=== PATIENT | female | born 1990 | race Caucasian/White ===

== ENCOUNTER → 2017-12-21 | Outpatient (CLI) | payer OTHER | END | disposition home or self-care (01) | LOC: C.PAPS 12:05 | PROVIDERS: ATTEND Family Medicine | DX: Z12.72 Encounter for screening for malignant neoplasm of vagina (principal) ==

== ENCOUNTER → 2017-12-21 | Outpatient (CLI) | payer OTHER | END | disposition home or self-care (01) | LOC: C.LABSPEC 11:20 | PROVIDERS: ATTEND Family Medicine | DX: Z11.3 Encounter for screening for infections with a predominantly sexual mode of transmission (principal); Z11.8 Encounter for screening for other infectious and parasitic diseases ==

== ENCOUNTER 2019-09-28 06:46 | Inpatient (IN) ==
[2019-09-28] MEDS ORDERED: OXYTOCIN 30 UNITS/500 ML BAG IV PRN ×3 (08:37→19:21)
[2019-09-28] MEDS ORDERED: BUTORPHANOL TARTRATE 1 MG/ML VIAL IV PRN (08:41)
--- NOTE | 2019-09-28 08:41 | History & Physical Report ---
Date of Service September 28, 2019 Assessment & Plan (1) Normal labor: admit, expectant management. wants iv pain meds now, but can have epidural on request. Fetus reassuring. Anticipate . History of Present Illness Primary Care Provider: Crystalalberto Soliman Patient is a 29yowf with iup at 38 2/7 weeks who presents to labor and delivery complaining of contractions since 3am. no lof, vb. +fm. O+ labs--O+/ab-/ri/rprnr/hep b-/hiv-/gc/ct-/gbs neg/ gtt x 2 neg panorama--uninformative DNA sample, may be associated with a chromosomal abnl and counseling recommended to consider further testing, she declined. Allergies Allergy/AdvReac Type Severity Reaction Status Date / Time No Known Drug Allergies Allergy none Verified 09/28/19 07:07 Home Medications Home Medications Medication Instructions Recorded Confirmed Type pedi multivitamin no.79-iron 1 tab PO DAILY 09/28/19 09/28/19 History [Flintstones with Iron] Patient History Medical History History of varicella Surgical History H/O wisdom tooth extraction No history of previous surgery Family History Grandmother (Maternal) Diabetes Mother Hypertension Premature labor Brother Hypertension Grandfather (Maternal) Hypertension Social History Preferred Language: Czech Communication Ability: Effective 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 Beliefs That Will Affect Care: None marital status: Current Living Situation: Spouse Other Information That Helps Us Care for You: No Feels Safe at Home: Yes Safety Concerns: Feels Safe At This Time Smoking Status: Never smoker Hx Alcohol Use: No Hx Substance Use: No 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
[2019-09-28] MEDS: LACTATED RINGER'S 1,000 ML IV PRN ×2 (08:45→12:36)
[2019-09-28 08:56] LABS: Hematocrit (blood only) 39.9 % (37-47); Hemoglobin 14.1 g/dL (12.0-16.0); Mean Corpuscular Hemoglobin 31.2 pg (25-34); Mean Corpuscular Volume 88.3 fL (80-100); Mean Platelet Volume 10.2 fL (7.4-10.4); Platelet Count 282 K/uL (130-400); RDW Standard Deviation 45.4 fL (36.4-46.3); Red Blood Count 4.52 M/uL (4.2-5.4); White Blood Count 14.32 K/uL (4.8-10.8)
[2019-09-28 09:10] LABS: Mean Corpuscular Hgb Conc 35.3 g/dL (32-36)
[2019-09-28] MEDS ORDERED: ePHEDrine sulfate 50 MG/ML AMP ONE (12:08)
[2019-09-28] MEDS ORDERED: fentaNYL citrate 100 MCG/2 ML VIAL ONE (12:08)
[2019-09-28] MEDS ORDERED: fentaNYL 2MCG/ML ROPIV 1.25MG/ML 100 ML BAG EPI ONE (12:09)
[2019-09-28] MEDS ORDERED: BUPIVACAINE 0.25% 30 ML VIAL ONE (12:09)
[2019-09-28] MEDS ORDERED: NALOXONE HCL 1 MG in SODIUM CHLORIDE 0.9% 1000ML 1,000 ML IV PRN (12:16)
[2019-09-28] MEDS ORDERED: ONDANSETRON INJ 2 MG/ML 2 ML VIAL IV PRN (12:16)
[2019-09-28] MEDS ORDERED: DiphenhydrAMINE HCL 50 MG/ML VIAL IV PRN (12:16)
[2019-09-28] MEDS ORDERED: NALOXONE HCL 0.4 MG/1 ML VIAL/CARP IV PRN (12:16)
[2019-09-28] MEDS ORDERED: fentaNYL 2MCG/ML ROPIV 1.25MG/ML 100 ML BAG EPI PRN (12:16)
[2019-09-28] MEDS ORDERED: ePHEDrine sulfate 50 MG/ML AMP IV PRN (12:16)
[2019-09-28] MEDS ORDERED: NALBUPHINE HCL INJ 10 MG/ML AMP IV PRN (12:16)
--- NOTE | 2019-09-28 12:22 | Anesthesiology Consultation ---
Date of Service September 28, 2019 Assessment & Plan Chart Review Chart Review: Patient NOT seen in Pre Admission Testing and Acceptable Risk for Labor Epidural Consults Requested none ASA ASA2 Proposed Anesthesia Anesthesia Type: Labor Epidural and CSE Risk / Benefits Reviewed With: PT / POA / Parent / Guardian, Accepts Plan and Informed Consent Obtained History Height/Weight Height: 5 ft 5 in Weight: 62.142 kg Allergies Allergy/AdvReac Type Severity Reaction Status Date / Time No Known Drug Allergies Allergy none Verified 09/28/19 07:07 Medications Home Medications Medication Instructions Recorded Confirmed Last Taken pedi multivitamin no.79-iron 1 tab PO DAILY 09/28/19 09/28/19 09/27/19 18:00 [Flintstones with Iron] Active Medications Generic Name Dose Route Start Last Admin Trade Name Freq PRN Reason Stop Dose Admin Lactated Ringer's 1,000 mls @ 125 mls/hr 09/28/19 08:37 09/28/19 12:05 Lr IV 09/30/19 08:36 999 mls/hr .Q8H PRN Infusion L&D Protocol Protocol NPO Date Last Intake of Fluids: 09/28/19 Time Last Intake of Fluids: 11:30 Date Last Intake of Solids: 09/28/19 Time Last Intake of Solids: 06:00 Past Medical History Medical History History of varicella Exercise / Class Metabolic Activity II 4-5 Yardwork/Stairs/Walk up hill Past Family History Family History Grandmother (Maternal) Diabetes Mother Hypertension Premature labor Brother Hypertension Grandfather (Maternal) Hypertension Past Surgical History Surgical History H/O wisdom tooth extraction No history of previous surgery Past Anesthesia History No Hx of Anesthesia Complications and No Family Hx of Anesthesia Complications History of PONV No Hx of PONV and No Hx of Motion Sickness Social History Smoking Status: Never smoker Hx Alcohol Use: No Hx Substance Use: No Review of Systems no chest pain or sob Physical Exam Vital Signs Last Vital Signs Temp 36.5 C 09/28/19 12:12 Pulse 91 H 09/28/19 12:17 Resp 20 09/28/19 12:12 BP 130/76 09/28/19 12:12 Pulse Ox 100 09/28/19 12:17 ENMT Mouth: no TMJ abnormality Thyromental Distance: > or= 3.5 Finger Breadths Mallampati Class: II Neck normal visual inspection Respiratory normal respiratory effort Auscultation: lungs clear to auscultation bilaterally Cardiovascular Rate/Rhythm: regular rate and regular rhythm Musculoskeletal Spine: normal cervical ROM Neurologic moves all extremities Psychiatric Orientation: alert and oriented x 3 Testing Laboratory Results 09/28/19 08:45
--- NOTE | 2019-09-28 17:22 | Labor Progress Brief Note ---
Date of Service September 28, 2019 Subjective feeling rectal pressure Assessment & Plan (1) Normal labor: start second stage. fetus category one. anticipate . Physical Exam Constitutional: WD/WN, vitals as above Psychiatric: A+Ox3, euthymic affect Genitourinary: c/c/+1 toco--q2-4min efm--145 with mod variabiliy, small accels, no decels Results & Data Vital Signs (Past 12 Hours) Vital Signs Temp Pulse Resp BP Pulse Ox 09/28/19 17:17 89 99 09/28/19 17:12 98 H 97 09/28/19 17:07 89 97 09/28/19 17:03 87 115/70 09/28/19 17:02 87 98 09/28/19 17:01 36.5 C 20 09/28/19 16:57 94 H 97 09/28/19 16:52 89 97 09/28/19 16:48 92 H 117/72 09/28/19 16:47 90 98 09/28/19 16:42 95 H 97 09/28/19 16:37 90 97 09/28/19 16:34 84 113/66 09/28/19 16:32 91 H 97 09/28/19 16:31 20 09/28/19 16:27 89 98 09/28/19 16:23 93 H 124/57 L 09/28/19 16:22 97 H 97 09/28/19 16:17 93 H 95 09/28/19 16:12 95 H 99 09/28/19 16:07 96 H 99 09/28/19 16:03 91 H 119/65 09/28/19 16:02 95 H 96 09/28/19 16:01 20 09/28/19 15:57 92 H 97 09/28/19 15:52 93 H 98 09/28/19 15:48 84 125/68 09/28/19 15:47 98 H 99 09/28/19 15:42 94 H 98 09/28/19 15:37 94 H 98 09/28/19 15:34 100 H 118/67 09/28/19 15:32 103 H 99 09/28/19 15:31 20 09/28/19 15:27 91 H 100 09/28/19 15:22 95 H 99 09/28/19 15:19 86 116/77 09/28/19 15:17 94 H 98 09/28/19 15:12 93 H 98 09/28/19 15:07 92 H 98 09/28/19 15:05 36.8 C 20 09/28/19 15:03 103 H 104/64 09/28/19 15:02 89 97 09/28/19 15:00 20 09/28/19 14:57 92 H 98 09/28/19 14:52 90 98 09/28/19 14:48 80 103/57 L 09/28/19 14:47 81 98 09/28/19 14:42 85 96 09/28/19 14:37 80 97 09/28/19 14:33 83 99/57 L 09/28/19 14:32 85 98 09/28/19 14:30 20 09/28/19 14:27 84 98 09/28/19 14:22 81 98 09/28/19 14:18 76 103/57 L 09/28/19 14:17 81 98 09/28/19 14:12 83 99 09/28/19 14:08 90 103/55 L 09/28/19 14:07 89 98 09/28/19 14:02 96 H 99 09/28/19 14:00 36.7 C 20 09/28/19 13:57 90 97 09/28/19 13:52 99 H 96 09/28/19 13:48 84 115/71 09/28/19 13:47 85 97 09/28/19 13:42 89 95 09/28/19 13:37 88 96 09/28/19 13:34 79 117/69 09/28/19 13:32 91 H 97 09/28/19 13:30 20 09/28/19 13:27 83 96 09/28/19 13:22 84 98 09/28/19 13:18 96 H 107/80 09/28/19 13:17 85 97 09/28/19 13:12 92 H 98 09/28/19 13:07 94 H 99 09/28/19 13:02 88 135/81 99 09/28/19 13:00 20 09/28/19 12:58 89 142/80 H 09/28/19 12:57 88 99 09/28/19 12:52 94 H 125/71 100 09/28/19 12:50 88 20 128/67 09/28/19 12:48 92 H 125/71 09/28/19 12:47 93 H 99 09/28/19 12:46 104 H 126/67 09/28/19 12:44 95 H 124/67 09/28/19 12:42 94 H 20 116/70 99 09/28/19 12:40 96 H 118/70 09/28/19 12:38 94 H 110/66 09/28/19 12:37 101 H 99 09/28/19 12:36 95 H 117/73 09/28/19 12:34 90 22 113/71 09/28/19 12:32 105 H 100 09/28/19 12:27 128 H 99 09/28/19 12:22 110 H 99 09/28/19 12:17 91 H 100 09/28/19 12:12 36.5 C 92 H 20 130/76 100 09/28/19 11:15 36.7 C 82 18 129/74 09/28/19 09:00 36.7 C 77 20 116/72 09/28/19 07:01 109 H 130/79 09/28/19 07:00 36.7 C 20 Coding Level of Care Code None Diagnoses Normal labor O80; Z37.9
[2019-09-28] MEDS ORDERED: ACETAMINOPHEN 325 MG TAB PO PRN (19:00)
[2019-09-28] MEDS ORDERED: IBUPROFEN 600 MG TAB PO PRN (19:00)
--- NOTE | 2019-09-28 19:06 | Delivery Summary ---
Vaginal Delivery Summary Date of Service September 28, 2019 Vaginal Delivery Summary Pre-operative Diagnosis: iup at 38 weeks active labor srom Post-operative Diagnosis: same Procedure: epidural first degree laceration and left labial laceration repair EBL: 400 Anesthesia: epidural Procedure: The patient pushed for 1.5 hr to deliver a viable female in laina position. The baby was vigorous. The nose and mouth were bulb suctioned and the infant was placed in the maternal abdomen for drying and attention. Cord was clamped and cut at one minute of life. Cord blood and segment obtained. Placenta delivered spontaneous, intact with a three vessel cord. Cervix/sulci/rectum were intact. A first degree perineal and left labial laceration was repaired in the normal standard fashion. Hemostasis obtained with dilute pitocin and fundal massage. Apgars were 8/9. Mother and baby doing well at the end of the delivery.
[2019-09-28] MEDS ORDERED: BENZOCAINE 20% AER SPR 82.5 GM CAN EXT PRN (19:21)
[2019-09-28] MEDS ORDERED: HYDROCORTISONE ACETATE 25 MG SUPP PR PRN (19:21)
[2019-09-28] MEDS ORDERED: SUPERCREAM 0.870% 15 GM JAR EXT PRN (19:21)
[2019-09-28] MEDS ORDERED: bisacodyL 10 MG SUPP PR PRN (19:21)
[2019-09-28] MEDS ORDERED: DIPHTHERIA/TETANUS/PERTUSSIS 0.5 ML SYR/VIAL IM ONE (19:21)
--- NOTE | 2019-09-28 19:32 | Operative Report ---
DATE OF OPERATION: 09/28/2019 PREOPERATIVE DIAGNOSES: 1. Intrauterine at 38+ weeks. 2. Spontaneous labor. 3. Spontaneous rupture of membranes. POSTOPERATIVE DIAGNOSES: 1. Intrauterine at 38+ weeks. 2. Spontaneous labor. 3. Spontaneous rupture of membranes. PROCEDURES: 1. Epidural anesthesia. 2. Normal spontaneous vaginal delivery. 3. First-degree and left labial laceration with repair. SURGEON: Pat Kendall MD ANESTHESIA: Epidural. ESTIMATED BLOOD LOSS: 400 mL. DESCRIPTION OF PROCEDURE: The patient presented to labor and delivery in early active labor. She progressed and underwent an epidural anesthetic and then after the epidural SROMed for clear fluid. She progressed spontaneously to complete-complete and +1 station and pushed for about an hour and a half to deliver a viable female in OSIEL presentation. There was no nuchal cord and the rest of the was then delivered without difficulty. The nose and mouth were bulb suctioned and the was vigorous, so she was placed on maternal abdomen for drying and attention. The cord was clamped and cut at 1 minute of life. Cord blood obtained. Placenta delivered spontaneously intact with a 3-vessel cord. First-degree perineal laceration was repaired and a left labial laceration repaired in normal standard fashion with 3-0 and 4-0 Vicryl respectively. Hemostasis obtained with dilute Pitocin and fundal massage. Apgars 8 and 9. Mother and baby doing well at the end of the delivery. I attest to the content of the Intraoperative Record and any orders documented therein. Any exception s are noted below.
--- NOTE | 2019-09-28 20:14 | Anesthesia Procedure Note ---
Date of Service September 28, 2019 Anesthesia Post Epidural Note Vital Signs Vital Signs: Temp Pulse Resp BP Pulse Ox 36.8 C 112 H 18 137/71 99 09/28/19 18:56 09/28/19 19:58 09/28/19 19:58 09/28/19 19:58 09/28/19 18:42 Pain Intensity Bilateral Abdomen: Pain Intensity: 0 Notes Mental Status: alert / awake / arousable and participated in evaluation Nausea / Vomiting: adequately controlled Pain: adequately controlled Airway Patency, RR, SpO2: stable & adequate BP & HR: stable & adequate Hydration State: stable & adequate Neuraxial Anesthesia: was administered and sensory block is resolving Anesthetic Complications: no major complications apparent and Pt Satisfied with anesthetic care Epidural: Removed without complications and With tip intact
[2019-09-28] MEDS: DOCUSATE SODIUM 100 MG CAP PO SCH ×2 (21:29→22:17)
[2019-09-29 05:56] LABS: Hematocrit (blood only) 33.9 % (37-47); Hemoglobin 11.6 g/dL (12.0-16.0)
--- NOTE | 2019-09-29 06:25 | Obstetrical Progress Note ---
Date of Service <Marko Zarco DO - Last Filed: 09/29/19 06:25> September 29, 2019 Assessment & Plan <DO Vaughn Loya Last Filed: 09/29/19 06:25> (1) Normal labor: -PPD#1 -Vitals reviewed, WNL (Tmax 36.8) - GBS -, Blood Type O+ - Clinically stable. - Feels well today. Eating well, voiding well, ambulating well. - Pain well controlled. - Routine post- care - After discharge will have [address] Faiza Kurtz #:: 1 Subjective <Marko Zarco DO - Last Filed: 09/29/19 06:25> Ambulation: ambulating normally Voiding: no voiding problems Passing Gas:: Yes Diet Tolerance:: regular diet Lochia:: Moderate Feeding Type:: breast feeding Current Pain Level(1-10): 1 (improve with analgesics) Patient is a 29 PPD#1. Patient states that she is feeling well today and that her pain is well controlled. She has no other complaints at this time. Constitutional: no fever and no chills Respiratory: no cough, no dyspnea and no wheezing Cardiovascular: no chest pain, no dyspnea, no palpitations, no edema and no calf pain Breast: no breast pain Gastrointestinal: no abdominal pain, no nausea and no vomiting Genitourinary (female): no dysuria and no difficulty urinating Neurologic: no headache(s) Physical Exam <DO Vaughn Loya Last Filed: 09/29/19 06:25> Constitutional WD/WN, vitals as above Respiratory normal respiratory effort, lungs clear to auscultation Cardiovascular Rate/Rhythm: regular rate and regular rhythm Heart Sounds: normal S1 and normal S2; no click, no gallop, no murmur and no cardiac rub Extremities: no calf tenderness and no edema Gastrointestinal (Abdomen) Inspection/Auscultation: abdomen normal to inspection and normal bowel sounds Percussion/Palpation: abdomen soft; abdomen nontender Genitourinary OB Exam Abdomen: + fundal height Fundus: + firm and + relation to umbilicus (2cm below); not tender and not boggy Results & Data <DO Vaughn Loya Last Filed: 09/29/19 06:25> Vital Signs (Past 12 Hours) Vital Signs Temp Pulse Pulse Resp BP BP Pulse Ox 09/29/19 03:40 36.8 C 99 H 18 117/75 09/29/19 00:10 36.6 C 136 H 18 116/83 09/28/19 21:45 36.7 C 104 H 16 118/76 99 09/28/19 20:59 116 H 18 114/67 09/28/19 20:31 120 H 18 134/70 09/28/19 19:58 112 H 18 137/71 09/28/19 19:41 89 18 116/56 L 09/28/19 19:26 102 H 18 129/78 09/28/19 19:11 106 H 18 132/77 09/28/19 18:56 36.8 C 100 H 18 112/78 09/28/19 18:48 106 H 113/78 09/28/19 18:42 108 H 99 09/28/19 18:39 130 H 85 L 09/28/19 18:37 115 H 99 09/28/19 18:34 90 117/78 09/28/19 18:32 118 H 99 09/28/19 18:31 20 09/28/19 18:27 90 99 <Pat Kendall MD, FACOG - Last Filed: 09/29/19 07:35> Co-Signing Physician Notes Resident Physician Supervision Note: I interviewed and examined the patient. Discussed with Dr. Zarco and agree with findings and plan as documented in the note. Any exceptions or clarifications are listed here: Doing well. routine care. Documented By: Pat Kendall MD, FACOG Resident Activity Tracking <Marko Zarco DO - Last Filed: 09/29/19 06:25> Resident Involvement: Resident Care Provided Care Provided: OB Delivery
[2019-09-29] MEDS: DOCUSATE SODIUM 100 MG CAP PO SCH ×2 (09:04→20:39)
[2019-09-29] MEDS: PRENATAL VITAMIN 1 TAB PO SCH (09:04)
[2019-09-29] MEDS ORDERED: bisacodyL 5 MG TABEC PO SCH (20:00)
--- NOTE | 2019-09-30 06:32 | Obstetrical Progress Note ---
Date of Service <Marko Zarco DO Last Filed: 09/30/19 06:32> September 30, 2019 Assessment & Plan <DO Vaughn Loya Last Filed: 09/30/19 06:32> (1) Normal labor: -PPD#2 -Vitals reviewed, WNL (Tmax 36.5) - GBS -, Blood Type O+ - Clinically stable. - Feels well today. Eating well, voiding well, ambulating well. - Pain well controlled. - Routine post- care - After discharge will have [address] Faiza Kurtz #:: 2 Subjective <Marko Zarco DO Last Filed: 09/30/19 06:32> Ambulation: ambulating normally Voiding: no voiding problems Passing Gas:: Yes Diet Tolerance:: regular diet Lochia:: Moderate Feeding Type:: breast feeding Current Pain Level(1-10): 1 (not requiring analgesics) Patient is a 29 PPD#2. Patient states that she is feeling well today and that her pain is well controlled. States that breast feeding is going much better today. She has no other complaints at this time. Constitutional: no fever and no chills Respiratory: no cough, no dyspnea and no wheezing Cardiovascular: no chest pain, no dyspnea, no palpitations, no edema and no calf pain Breast: no breast pain Gastrointestinal: no abdominal pain, no nausea and no vomiting Genitourinary (female): no dysuria and no difficulty urinating Neurologic: no headache(s) Physical Exam <DO Vaughn Loya Last Filed: 09/30/19 06:32> Constitutional WD/WN, vitals as above Respiratory normal respiratory effort, lungs clear to auscultation Cardiovascular Rate/Rhythm: regular rate and regular rhythm Heart Sounds: normal S1 and normal S2; no click, no gallop, no murmur and no cardiac rub Extremities: no calf tenderness and no edema Gastrointestinal (Abdomen) Inspection/Auscultation: abdomen normal to inspection and normal bowel sounds Percussion/Palpation: abdomen soft; abdomen nontender Genitourinary OB Exam Abdomen: + fundal height Fundus: + firm and + relation to umbilicus (3cm below); not tender and not boggy Results & Data <DO Vaughn Loya Last Filed: 02/15/20 06:32> Vital Signs (Past 12 Hours) Vital Signs Temp Pulse Resp BP 09/29/19 23:00 36.4 C L 92 H 18 120/82 <Taras Ortiz Jr, MD, FACOG - Last Filed: 09/30/19 07:38> Co-Signing Physician Notes Resident Physician Supervision Note: I was present with Dr. Zarco during the history and exam. I discussed the case with the resident and agree with the findings and plan as documented in the note. Any exceptions or clarifications are listed here: Patient desires discharge. Instructions given, f/u in 6 weeks Documented By: Taras Ortiz Jr, MD, FACOG Resident Activity Tracking <Marko Zarco DO - Last Filed: 09/30/19 06:32> Resident Involvement: Resident Care Provided Care Provided: OB Delivery
[2019-09-30] MEDS: DOCUSATE SODIUM 100 MG CAP PO SCH (08:25)
[2019-09-30] MEDS: PRENATAL VITAMIN 1 TAB PO SCH (08:25)
== END 2019-09-30 10:19 | disposition home or self-care (01) | DRG 807 ==
LOC: OPB 06:46 → 4S1 06:49 → 4S2 21:36